=== PATIENT | male | born 1985 | race African-American/Black ===

== ENCOUNTER 2016-10-03 07:11 | Emergency (ER) | payer MEDICAID, OTHER ==
[~2016-10-03] VITALS: Ht 195.6 cm; Wt 88.5 kg
[2016-10-03 07:40] VITALS: BP 125/90
[2016-10-03] MEDS ORDERED: cefTRIAXone SODIUM 250 MG VL IM ONE (08:15)
== END 2016-10-03 08:27 | disposition home or self-care (01) ==
LOC: ER 07:11
DX: A64 Unspecified sexually transmitted disease (principal)
CPT/HCPCS: 96372; 99283; J0696

== ENCOUNTER 2017-03-21 13:57 | Emergency (ER) | payer MEDICAID ==
[~2017-03-21] VITALS: Ht 198.1 cm; Wt 90.7 kg
[2017-03-21 15:20] VITALS: BP 141/94
== END 2017-03-21 15:45 | disposition home or self-care (01) ==
LOC: ER 13:57
DX: M25.531 Pain in right wrist (principal)